=== PATIENT | male | born 1950 | race Caucasian/White ===

== ENCOUNTER → 2019-12-12 13:43 | Outpatient (BNVA) | payer MEDICARE, SELFPAY | PROVIDERS: PCP Internal Medicine; Referring Provider Internal Medicine; Visit Provider Internal Medicine Pulmonary Disease | DX: R91.8 Other nonspecific abnormal finding of lung field (principal) | CPT/HCPCS: 99204 ==

== ENCOUNTER 2019-12-26 07:52 | Outpatient (REF) | payer MEDICARE, SELFPAY ==
--- NOTE | 2019-12-26 07:55 | CT_ITS ---
EXAMINATION: CT CHEST WITHOUT CONTRAST CLINICAL INFORMATION: Abnormal lung findings COMPARISON: None TECHNIQUE: Multidetector volumetric CT imaging of the chest was done. Axial MIP volume rendering provided. Sagittal and coronal reformatted images were obtained. This CT examination was performed using dose optimization techniques as appropriate, variously including the following: *Automated exposure control *Adjustment of mA and/or kV according to patient size (this includes techniques or standardized protocols for targeted exams where dose is matched to indication/reason for exam; i.e. extremities or head) *Use of iterative reconstruction technique DLP: 280 mGy-cm FINDINGS: BORE MILL OPERATOR: Unremarkable. LUNGS: The lungs are hyperinflated with centrilobular emphysema. There is patchy atelectasis scarring left upper lobe, subpleural linear densities axial image 285/5 measuring 3 mm, subpleural nodular thickening tree-in-bud appearance right lower lobe image 408/5, subpleural nodules right middle lobe 398/5 image 426/5, 8 mm subpleural lobulated nodule left lower lobe superior segment image 286/5, subpleural,7 mm nodule left upper lobe axial image 298/5. There is a 3 mm focal nodule left major fissure image 289/5. MEDIASTINUM: Thyroid lobes are symmetrical and normal. The central trachea and bronchi are widely patent. Heart size and the great vessels are normal caliber. There are coronary artery calcifications present. No pericardial effusion seen. PLEURA: There is no pleural effusion. No pleural mass or thickening. AXILLA: No lymphadenopathy. UPPER ABDOMEN: Visualized liver, spleen, pancreas and bilateral adrenal glands are unremarkable. There are left renal cyst. OSSEOUS STRUCTURES: There is exaggerated thoracic kyphosis. Moderate ventral spondylosis. No lytic process seen. CT/CT chest wo con IMPRESSION: Centrilobular emphysema. Multiple ill-defined density scattered throughout both lungs and subpleural densities. Some of these may represent scarring or atelectasis. Focal tree-in-bud appearance is suspected right lower lobe. There are no previous exams available for comparison.
== END 2019-12-26 07:53 | disposition home or self-care (01) ==
LOC: HO.CT 07:52
PROVIDERS: PCP Internal Medicine Medical Oncology; Visit Provider Internal Medicine Pulmonary Disease
DX: R91.8 Other nonspecific abnormal finding of lung field (principal)
CPT/HCPCS: 71250

== ENCOUNTER → 2020-01-21 08:44 | Outpatient (BNVA) | payer MEDICARE, SELFPAY | PROVIDERS: Visit Provider Internal Medicine Pulmonary Disease | DX: R91.8 Other nonspecific abnormal finding of lung field (principal); R06.00 Dyspnea, unspecified; N18.6 End stage renal disease; Z85.528 Personal history of other malignant neoplasm of kidney; Z87.891 Personal history of nicotine dependence; Z99.2 Dependence on renal dialysis; Z90.5 Acquired absence of kidney | CPT/HCPCS: 99212 ==